=== PATIENT | male | born 1990 | race Caucasian/White ===

== ENCOUNTER 2019-03-26 19:29 | Emergency (ER) | payer BC, OTHER ==
[2019-03-26] MEDS ORDERED: Morphine 2 MG/ML Syringe IVPUSH ONE ×2 (19:39→20:27)
[2019-03-26] MEDS ORDERED: Ondansetron 4 MG/2 ML SDV IVPUSH ONE (19:39)
[2019-03-26] MEDS ORDERED: Sodium Chloride 0.9% 1,000 ML IV SCH (19:45)
[2019-03-26] MEDS ORDERED: Ketorolac 30 MG/ML SDV IVPUSH ONE (20:29)
[2019-03-26] MEDS ORDERED: Sodium Chloride 0.9% 1,000 ML IV ONE (21:24)
[2019-03-26] MEDS ORDERED: cefTRIAXone 1 GM Vial IVPUSH SCH (23:45)
--- NOTE | 2019-03-26 23:48 | EDM.PDOC ---
ED HPI GENERAL MEDICAL PROBLEM - General Chief Complaint: Flank Pain Stated Complaint: BACK PAIN Time Seen by Provider: 03/26/19 19:35 Source of Information: Reports: Patient, Family History Limitations: Reports: No Limitations - History of Present Illness INITIAL COMMENTS - FREE TEXT/NARRATIVE: patient is a pleasant 28-year-old male who presents today with concern for a sudden onset sharp and severe pain in his left side and left lower abdomen, as well as his left scrotum. He reports he has vomited several times this afternoon. He has not had anything like this before and is extremely uncomfortable, unable to find a easy position to lie on the bed. He reports that last Tuesday he had a fall while climbing up the bank and slipped and fell on some concrete. He had some achiness in his left side and back over the weekend but didn't think much of it. He has not had any fever, no chills or sweats, really no other symptoms prior to 2:30 this afternoon. He hasn 't had any increased urination, penile discharge, or swelling in his scrotum. He has no history of a mass or lump in his left groin like she might have a hernia. He has not had any diarrhea. He has not really tried taking anything because he's not keeping any fluids down, and nothing seems to make the pain better or worse. denies current sexual activity. 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 Denies: Fever HEENT: Reports: No Symptoms Respiratory: Reports: No Symptoms Cardiovascular: Reports: No Symptoms Endocrine: Reports: No Symptoms GI/Abdominal: Reports: Abdominal Pain, Nausea, Vomiting. Denies: Diarrhea : Reports: Flank Pain. Denies: Dysuria, Frequency, Hematuria, Urgency, Urinary Retention Musculoskeletal: Reports: Back Pain Skin: Reports: No Symptoms Neurological: Denies: Headache, Numbness, Tingling, Weakness Hematologic/Lymphatic: Reports: No Symptoms Immunologic: Reports: No Symptoms ED EXAM, GENERAL - Physical Exam Exam: See Below Free Text/Narrative:: general: Alert, extremely uncomfortable and curled up on the bed. Mouth slightly dry, neck is supple, head is atraumatic. Heart is regular rate and rhythm and lungs are clear throughout with no wheezes or crackles and good air movement in all [place]. Abdomen soft, nondistended and nontender except for slight tenderness noted in the left lower quadrant with no rebound or guarding. He has no obvious joint swelling, is moving all extremities normal and has a normal gait. He has no obvious skin lesions, there is a abdominal surgical scar across his lower abdomen as well as evidence of multiple reconstructive surgeries of his face. exam shows normal appearing circumcised penis and no tenderness in the right scrotum. The scrotum is slightly tender and pain is improved when the testicle is lifted. Cremasteric reflexes intact. No hernia is palpable. Course - Vital Signs Text/Narrative:: initial evaluation completed, r/o testicular torsion, other possibility epididymitis, hernia (none felt on exam), seems otherwise unlikely GI, ?kidney stone but no history and pain is much lower. Also had fall Tuesday, but seems unrelated given timeframe and sudden onset today. Labs, US, pain/nausea meds and IVF ordered Last Recorded V/S: Last Vital Signs Temp 36.4 C 03/26/19 19:29 Pulse 66 03/26/19 19:29 Resp 17 03/26/19 19:29 BP 110/77 03/26/19 19:29 Pulse Ox 100 03/26/19 19:29 - Orders/Labs/Meds Orders: Active Orders 24 hr Category Date Time Status Abdomen Pelvis wo Cont [CT] Stat Exams 03/26/19 21:57 Taken Testicular US [Scrotum and Contents] [US] Stat Exams 03/26/19 20:27 Taken Sodium Chloride 0.9% [Normal Saline] 1,000 ml Med 07/08/19 19:45 Active IV ASDIRECTED cefTRIAXone [Rocephin] Med 03/26/19 23:45 Active 1 gm IVPUSH Q24H Medication Orders Ceftriaxone Sodium (Rocephin) 1 gm IVPUSH Q24H [facility] Last Admin: 03/27/19 00:04 Dose: 1 gm Sodium Chloride (Normal Saline) 1,000 mls @ 999 mls/hr IV ASDIRECTED ROLANDO Last Admin: 03/26/19 19:51 Dose: 999 mls/hr Labs: Laboratory Tests 03/26/19 03/26/19 03/26/19 Range/Units 19:50 19:50 19:50 WBC 15.5 H (4.5-12.0) X10-3/uL RBC 4.73 (4.30-5.75) x10(6)uL Hgb 15.0 (13.5-17.8) g/dL Hct 43.4 (30.0-51.3) % MCV 91.9 (80-96) fL MCH 31.8 (27.7-33.6) pg MCHC 34.6 (32.2-35.4) g/dL RDW 12.1 (11.5-15.5) % Plt Count 248 (125-369) X10(3)uL MPV 8.5 (7.4-10.4) fL Neut % (Auto) 84.2 H (46-82) % Lymph % (Auto) 10.2 L (13-37) % Anderson % (Auto) 4.9 (4-12) % Eos % (Auto) 0 L (1.0-5.0) % Baso % (Auto) 0 (0-2) % Neut # (Auto) 13.0 H (1.6-8.3) # Lymph # (Auto) 1.6 (0.6-5.0) # Anderson # (Auto) 0.8 (0.0-1.3) # Eos # (Auto) 0.1 (0.0-0.8) # Baso # (Auto) 0.0 (0.0-0.2) # PT 11.0 (8.7-11.1) INR 1.13 (0.89-1.13) Sodium 141 (135-145) mmol/L Potassium 3.5 (3.5-5.3) mmol/L Chloride 101 (100-110) mmol/L Carbon Dioxide 26 (21-32) mmol/L BUN 22 H (7-18) mg/dL Creatinine 1.3 (0.70-1.30) mg/dL Est Cr Clr Drug Dosing TNP Estimated GFR (MDRD) > 60 (>60) BUN/Creatinine Ratio 16.9 (9-20) Glucose 117 H (80-116) mg/dL Lactic Acid (0.4-2.2) mmol/L Calcium 10.1 (8.6-10.2) mg/dL Total Bilirubin 1.0 (0.1-1.3) mg/dL AST 20 (5-25) IU/L ALT 24 (12-36) U/L Alkaline Phosphatase 99 (56-112) IU/L C-Reactive Protein (0.5-0.9) mg/dL Total Protein 8.1 H (6.0-8.0) g/dL Albumin 4.7 (3.5-5.2) g/dL Globulin 3.4 g/dL Albumin/Globulin Ratio 1.4 Urine Color (YELLOW) Urine Appearance (CLEAR) Urine pH (5.0-6.5) Ur Specific [place] (1.010-1.025) Urine Protein (NEGATIVE) mg/dL Urine Glucose (UA) (NORMAL) mg/dL Urine Ketones (NEGATIVE) mg/dL Urine Occult Blood (NEGATIVE) Urine Nitrite (NEGATIVE) Urine Bilirubin (NEGATIVE) Urine Urobilinogen (NEGATIVE) mg/dL Ur Leukocyte Esterase (NEGATIVE) Urine RBC (0-5) Urine WBC (0-5) Ur Squamous Epith Cells (NS,R,O) Amorphous Sediment Urine Bacteria (NS) Urine Mucus (NS) 03/26/19 03/26/19 03/26/19 Range/Units 19:50 19:50 21:16 WBC (4.5-12.0) X10-3/uL RBC (4.30-5.75) x10(6)uL Hgb (13.5-17.8) g/dL Hct (30.0-51.3) % MCV (80-96) fL MCH (27.7-33.6) pg MCHC (32.2-35.4) g/dL RDW (11.5-15.5) % Plt Count (125-369) X10(3)uL MPV (7.4-10.4) fL Neut % (Auto) (46-82) % Lymph % (Auto) (13-37) % Anderson % (Auto) (4-12) % Eos % (Auto) (1.0-5.0) % Baso % (Auto) (0-2) % Neut # (Auto) (1.6-8.3) # Lymph # (Auto) (0.6-5.0) # Anderson # (Auto) (0.0-1.3) # Eos # (Auto) (0.0-0.8) # Baso # (Auto) (0.0-0.2) # PT (8.7-11.1) INR (0.89-1.13) Sodium (135-145) mmol/L Potassium (3.5-5.3) mmol/L Chloride (100-110) mmol/L Carbon Dioxide (21-32) mmol/L BUN (7-18) mg/dL Creatinine (0.70-1.30) mg/dL Est Cr Clr Drug Dosing Estimated GFR (MDRD) (>60) BUN/Creatinine Ratio (9-20) Glucose (80-116) mg/dL Lactic Acid 2.0 (0.4-2.2) mmol/L Calcium (8.6-10.2) mg/dL Total Bilirubin (0.1-1.3) mg/dL AST (5-25) IU/L ALT (12-36) U/L Alkaline Phosphatase (56-112) IU/L C-Reactive Protein 1.5 H (0.5-0.9) mg/dL Total Protein (6.0-8.0) g/dL Albumin (3.5-5.2) g/dL Globulin g/dL Albumin/Globulin Ratio Urine Color Yellow (YELLOW) Urine Appearance Slightly cloudy (CLEAR) Urine pH 7.0 H (5.0-6.5) Ur Specific [place] 1.015 (1.010-1.025) Urine Protein Negative (NEGATIVE) mg/dL Urine Glucose (UA) Normal (NORMAL) mg/dL Urine Ketones 50 H (NEGATIVE) mg/dL Urine Occult Blood Large H (NEGATIVE) Urine Nitrite Negative (NEGATIVE) Urine Bilirubin Negative (NEGATIVE) Urine Urobilinogen 1 H (NEGATIVE) mg/dL Ur Leukocyte Esterase Negative (NEGATIVE) Urine RBC 20-30 H (0-5) Urine WBC 0-5 (0-5) Ur Squamous Epith Cells Few H (NS,R,O) Amorphous Sediment Few Urine Bacteria Few H (NS) Urine Mucus Few H (NS) Meds: Medications Generic Name Dose Route Start Last Admin Trade Name Freq PRN Reason Stop Dose Admin Ceftriaxone Sodium 1 gm 03/26/19 23:45 03/27/19 00:04 Rocephin IVPUSH 1 gm Q24H ROLANDO Administration Sodium Chloride 1,000 mls @ 999 mls/hr 03/26/19 19:45 03/26/19 19:51 Normal Saline IV 999 mls/hr ASDIRECTED ROLANDO Administration Discontinued Medications Generic Name Dose Route Start Last Admin Trade Name Freq PRN Reason Stop Dose Admin Sodium Chloride 1,000 mls @ 500 mls/hr 03/26/19 21:24 03/26/19 21:25 Normal Saline IV 03/26/19 23:23 500 mls/hr .BOLUS ONE Administration Ketorolac Tromethamine 30 mg 03/26/19 20:29 03/26/19 20:34 Toradol IVPUSH 03/26/19 20:30 30 mg ONETIME ONE Administration Morphine Sulfate 2 mg 03/26/19 19:39 03/26/19 19:50 Morphine IVPUSH 03/26/19 19:40 2 mg ONETIME ONE Administration Morphine Sulfate 2 mg 03/26/19 20:27 03/26/19 20:33 Morphine IVPUSH 03/26/19 20:28 2 mg ONETIME ONE Administration Ondansetron HCl 4 mg 03/26/19 19:39 03/26/19 19:50 Zofran IVPUSH 03/26/19 19:40 4 mg ONETIME ONE Administration - Re-Assessments/Exams Free Text/Narrative Re-Assessment/Exam: 03/26/19 recheck - patient more comfortable after pain meds. not yet able to void. US shows good blood flow on Doppler, no swelling. Continue IVF, labs show elevated WBCs w/ left shift, CRP 1.5, normal LFTS, lytes. No fever. Free Text/Narrative Re-Assessment/Exam: 03/26/19 recheck, still ok with pain. Voided after first liter IVF completed. UA shows gross blood, no nitrates, leuk esterace, or WBCs. Discussed getting CT to look for renal stones, they are in agreement. Free Text/Narrative Re-Assessment/Exam: 03/26/19 CT resulted - 7mm left sided stone with mild hydronephrosis. A second 4mm stone is present in the renal pelvis. Discussed transfer, they would like [facility]. Given vomiting and elevated WBCs, 1 dose ceftriaxone ordered. Urine culture also ordered. Medication given: morphine 2mg IV X2 doses, 4mg zofran, 2L NS patient requests to go by private car; parents able to take him [facility] additional 2mg morphine and 4mg zofran given prior to car ride, IV saline locked and in place Departure - Departure Time of Disposition: 00:12 Disposition: DC/Tfer to [facility] 02 Preliminary Cause of *Q: Cardiac Arrest Condition: Fair Clinical Impression: Nephrolithiasis, Hydronephrosis, Nausea & vomiting - Discharge Information *PRESCRIPTION DRUG MONITORING PROGRAM REVIEWED*: Not Applicable *COPY OF PRESCRIPTION DRUG MONITORING REPORT IN PATIENT JOE: Not Applicable Referrals: PCP,None [Primary Care Provider] - Forms: ED Department Discharge [facility] My Orders Last 24 Hours: My Active Orders 03/26/19 19:45 Sodium Chloride 0.9% [Normal Saline] 1,000 ml IV ASDIRECTED 03/26/19 20:27 Testicular US [Scrotum and Contents] [US] Stat 03/26/19 21:57 Abdomen Pelvis wo Cont [CT] Stat 03/26/19 23:45 cefTRIAXone [Rocephin] 1 gm IVPUSH Q24H - Assessment/Plan Last 24 Hours: My Active Orders 03/26/19 19:45 Sodium Chloride 0.9% [Normal Saline] 1,000 ml IV ASDIRECTED 03/26/19 20:27 Testicular US [Scrotum and Contents] [US] Stat 03/26/19 21:57 Abdomen Pelvis wo Cont [CT] Stat 03/26/19 23:45 cefTRIAXone [Rocephin] 1 gm IVPUSH Q24H
[2019-03-27] MEDS ORDERED: Morphine 2 MG/ML Syringe IVPUSH ONE (00:10)
[2019-03-27] MEDS ORDERED: Ondansetron 4 MG/2 ML SDV IVPUSH ONE (00:10)
--- NOTE | 2019-03-27 11:31 | US ---
INDICATION: Sudden onset testicular pain, left side. ULTRASOUND SCROTUM AND CONTENTS: Multiple ultrasonic images revealed the testicles to measure, on the right, 3.9 x 1.9 x 2.4 cm, and on the left, 3.3 x 1.6 x 2.9 cm. Blood flow appeared normal with no evidence of mass lesions, hydrocele, varicocele, or microlithiasis. The epididymides measured 5.2 mm on the right and 4.6 mm on the left - unremarkable. IMPRESSION: Normal testicular/scrotal ultrasound. MTDD
== END 2019-03-27 00:25 ==
LOC: FB.ED 19:29
DX: N13.2 Hydronephrosis with renal and ureteral calculous obstruction (principal); E03.9 Hypothyroidism, unspecified; Z79.899 Other long term (current) drug therapy
CPT/HCPCS: 36415; 74176; 76870; 80053; 81001; 83605; 85025; 85610; 86140; 96361; 96374; 96375; 96376; 99285; J0696; J1885; J2270; J2405; J7030